=== PATIENT | male | born 1955 | race Two or more races ===

== ENCOUNTER → 2024-03-09 | Outpatient (CLI) | payer MEDICARE, MEDICAID ==
[~2024-03-09] VITALS: Ht 167.6 cm; Wt 86.2 kg
[2024-03-09] MEDS: ADENOSINE 72 MG in GIVE UN-DILUTED 0 ML IV ONE (10:37)
== END | disposition home or self-care (01) ==
LOC: XYW 08:33
PROVIDERS: ATTEND Internal Medicine
DX: R00.1 Bradycardia, unspecified (principal); R07.9 Chest pain, unspecified
CPT/HCPCS: 78452; A9500; J0153